=== PATIENT | female | born 1995 | race Two or more races ===

== ENCOUNTER 2023-07-28 01:24 | Emergency (ER) | payer OTHER ==
[~2023-07-28] VITALS: Ht 160 cm; Wt 54.4 kg
[2023-07-28 02:17] LABS: HEMATOCRIT 38.9 % (36.0-45.00); HEMOGLOBIN 13.2 g/dL (12.0-15.00); MEAN CELL VOLUME 89.5 fL (80.00-100.00); MEAN CORPUSCULAR HEMOGLOBIN 30.3 pg (27.00-32.0); MEAN CORPUSCULAR HGB CONC 33.9 g/dl (32.0-36.0); PLATELET COUNT 217 K/uL (150-450); RED BLOOD COUNT 4.35 M/uL (4.00-6.00); RED CELL DISTRIBUTION WIDTH 12.7 % (11.5-14.5)
[2023-07-28 02:32] LABS: CALCIUM 8.8 mg/dL (8.5-10.1); CREATININE SERUM 0.78 mg/dL (0.55-1.02); GFR 89.27; POTASSIUM 3.34 mEq/L (3.5-5.1)
== END 2023-07-28 04:21 | disposition home or self-care (01) ==
LOC: EDBD 01:24 → ER 01:24
DX: G40.89 Other seizures (principal)